=== PATIENT | female | born 1975 | race American Indian/Alaskan Native ===

== ENCOUNTER 2018-11-08 04:20 | Emergency (ER) | payer OTHER ==
[2018-11-08 08:38] VITALS: BP 145/84
--- NOTE | 2018-11-08 09:39 | Cat Scan Report ---
CT HEAD WITHOUT CONTRAST: HISTORY: Headache on left side for one month. TECHNIQUE: Sequential 2.5mm CT images. COMPARISON: 09/25/13. FINDINGS: Cerebral Parenchyma: Within normal limits. Cerebellum: Within normal limits. Brainstem: Within normal limits. Ventricles: Normal. Sella: Normal. Extra-axial spaces: Normal. Basal Cisterns: Normal. Intracranial Hemorrhage: None. Midline Shift: None. Calvarium: Normal. Sinuses: Normal. Mastoid Air Cells: Normal. Visualized Orbits: Normal. IMPRESSION: Cranial CT scan within normal limits.
--- NOTE | 2018-11-08 10:03 | Emergency Department Report ---
ED Headache HPI - General Chief Complaint: Headache Stated Complaint: LEFT SIDE OF BODY NUMB Time Seen by Provider: 11/08/18 09:36 - History of Present Illness Initial Comments: Patient is a 43-year-old Female who is presenting with a headache for the last month. Patient states that headache is mostly left-sided but sometimes is in the posterior occipital region. Patient states that her head aches and throbs several hours daily. Patient states she has some mild nausea but no vomiting and denies any neck stiffness fevers chills, cold or congestion. Patient states there is some associated numbness to the left arm and leg that is constant and is not improved when the headache goes away. Patient states she does also have some neck and back pain as well that is chronic. Allergies/Adverse Reactions: Allergies No Known Allergies Allergy (Verified 11/08/18 04:29) Home Medications: Ambulatory Orders Butalbit/Acetamin/Caff/Codeine [Fioricet-Cod 99-792-29-30 Cap] 1 each PO Q4-6H PRN #20 capsule 09/25/13 Ibuprofen [Motrin 600 MG tab] 600 mg PO Q8H PRN #20 tablet 11/08/18 traMADol [Ultram] 50 mg PO Q6HR PRN #12 tablet 11/08/18 ED Review of Systems ROS: Stated complaint: LEFT SIDE OF BODY NUMB Other details as noted in HPI Comment: All other systems reviewed and negative ED Past Medical Hx - Past Medical History Previous Medical History?: No - Surgical History Past Surgical History?: Yes Additional Surgical History: x2 - Social History Smoking Status: Never Smoker Substance Use Type: None - Medications Home Medications: Home Medications Medication Instructions Recorded Confirmed Last Taken Type Butalbit/Acetamin/Caff/Codeine 1 each PO Q4-6H PRN #20 capsule 09/25/13 Unknown Rx [Fioricet-Cod 98-690-14-30 Cap] Ibuprofen [Motrin 600 MG tab] 600 mg PO Q8H PRN #20 tablet 11/08/18 Unknown Rx traMADol [Ultram] 50 mg PO Q6HR PRN #12 tablet 11/08/18 Unknown Rx ED Physical Exam - General Limitations: No Limitations General appearance: alert, in no apparent distress - Head Head exam: Present: atraumatic, normocephalic - Eye Eye exam: Present: normal appearance, PERRL, EOMI - ENT ENT exam: Present: mucous membranes moist - Neck Neck exam: Present: normal inspection - Respiratory Respiratory exam: Present: normal lung sounds bilaterally. Absent: respiratory distress, wheezes, rales, rhonchi - Cardiovascular Cardiovascular Exam: Present: regular rate, normal rhythm. Absent: systolic murmur, diastolic murmur, rubs, gallop - GI/Abdominal GI/Abdominal exam: Present: soft, normal bowel sounds. Absent: distended, tenderness, guarding, rebound - Extremities Exam Extremities exam: Present: normal inspection - Back Exam Back exam: Present: normal inspection - Neurological Exam Neurological exam: Present: alert, oriented X3 - Psychiatric Psychiatric exam: Present: normal affect, normal mood - Skin Skin exam: Present: warm, dry, intact, normal color. Absent: rash ED Course Vital Signs 11/08/18 11/08/18 11/08/18 04:38 08:38 08:39 Temperature 98.1 F 98.5 F 98.5 F Pulse Rate 75 76 76 Respiratory 18 16 18 Rate Blood Pressure 145/71 Blood Pressure 145/84 145/84 [Right] O2 Sat by Pulse 99 100 100 Oximetry ED Medical Decision Making - Radiology Data [facility] [address] [place] [address] Cat Scan Report Signed Patient: MICHELLE MENARD MR#: [id number] : 1975 Acct:[id number] Age/Sex: 43 / F ADM Date: 11/08/18 Loc: ED Attending Dr: Ordering Physician: JIMMY SUMMERS MD Date of Service: 11/08/18 Procedure(s): CT head/brain wo con Accession Number(s): [id number] cc: JIMMY SUMMERS MD CT HEAD WITHOUT CONTRAST: HISTORY: Headache on left side for one month. TECHNIQUE: Sequential 2.5mm CT images. COMPARISON: 09/25/13. FINDINGS: Cerebral Parenchyma: Within normal limits. Cerebellum: Within normal limits. Brainstem: Within normal limits. Ventricles: Normal. Sella: Normal. Extra-axial spaces: Normal. Basal Cisterns: Normal. Intracranial Hemorrhage: None. Midline Shift: None. Calvarium: Normal. Sinuses: Normal. Mastoid Air Cells: Normal. Visualized Orbits: Normal. IMPRESSION: Cranial CT scan within normal limits. Transcribed By: TTR Dictated By: ZACH TREVINO JR, MD Electronically Authenticated By: ZACH TREVINO JR, MD Signed Date/Time: 11/08/18933 DD/ 2 TD/TT: 11/08/18933 - Medical Decision Making Patient is a 43-year-old female who is presenting with left-sided headache with numbness to her left side last month. Patient's CT head shows no subacute stroke or evidence of mass effect. Patient to be given pain meds and discharged home with follow-up with neurology. Critical care attestation.: If time is entered above; I have spent that time in minutes in the direct care of this critically ill patient, excluding procedure time. ED Disposition Clinical Impression: Paresthesia, Cervical radiculopathy Acute headache Qualifiers: Headache type: tension-type Intractability: intractable Qualified Code(s): G44.201 - Tension-type headache, unspecified, intractable Disposition: DC-01 TO HOME OR SELFCARE Is pt being admited?: No Does the pt Need Aspirin: No Condition: Stable Instructions: Acute Headache (ED) Referrals: MARCUS CEVALLOS MD [Referring] - 3-5 Days Time of Disposition: 10:04
== END 2018-11-08 10:12 | disposition home or self-care (01) ==
LOC: ED 04:20
DX: R51 Headache (principal); M54.12 Radiculopathy, cervical region; M54.9 Dorsalgia, unspecified; R20.2 Paresthesia of skin
CPT/HCPCS: 70450; 93005; 93010

== ENCOUNTER 2019-06-01 12:31 | Emergency (ER) | payer MEDICAID, OTHER ==
[2019-06-01 12:41] VITALS: BP 151/59
--- NOTE | 2019-06-01 13:07 | Emergency Department Report ---
Blank Doc - Documentation Documentation: 43-year-old female that presents with left sided flank pain with radiation to left chest and arm. This initial assessment/diagnostic orders/clinical plan/treatment(s) is/are subject to change based on patient's health status, clinical progression and re- assessment by fellow clinical providers in the ED. Further treatment and workup at subsequent clinical providers discretion. Patient/guardians urged not to elope from the ED as their condition may be serious if not clinically assessed and managed. Initial orders include: 1- Patient sent to Main ED for further evaluation and treatment 2- EKG 3- labs 4- UA
[2019-06-01 14:24] LABS: Basophils # (Auto) 0.1 K/mm3 (0.0-0.1); Basophils % (Auto) 1.6 % (0.0-1.8); Eosinophils # (Auto) 0.1 K/mm3 (0.0-0.4); Eosinophils % (Auto) 1.2 % (0.0-4.3); Hematocrit 20.7 % (30.3-42.9); Lymphocytes # (Auto) 2.1 K/mm3 (1.2-5.4); Lymphocytes % (Auto) 33.6 % (13.4-35.0); Mean Corpuscular HGB Conc 29 % (30-34); Monocytes # (Auto) 0.7 K/mm3 (0.0-0.8); Monocytes % (Auto) 11.6 % (0.0-7.3); Platelet Count 843 K/mm3 (140-440); Red Blood Count 3.19 M/mm3 (3.65-5.03)
[2019-06-01 14:34] LABS: INR 0.93 (0.87-1.13); Partial Thromboplastin Time 24.6 Sec. (24.2-36.6)
[2019-06-01 14:37] LABS: Mean Corpuscular Volume 65 fl (79-97)
[2019-06-01 14:38] LABS: Red Cell Distribution Width 24.4 % (13.2-15.2)
[2019-06-01 14:41] LABS: Alanine Aminotransferase 6 units/L (7-56); Albumin 4.4 g/dL (3.9-5); BUN/Creatinine Ratio 17; Blood Urea Nitrogen 10 mg/dL (7-17); Calcium 9.5 mg/dL (8.4-10.2); Hemolysis Index 8
--- NOTE | 2019-06-01 15:39 | XRay Report ---
CHEST PA AND LATERAL VIEWS INDICATION: Chest Pain. COMPARISON: None. FINDINGS: Support devices: None. Heart: Within normal limits. Lungs/Pleura: No acute pulmonary or pleural findings. IMPRESSION: 1. No acute findings. Signer Name: Zeus Armando MD Signed: 06/01/2019 3:34 PM Workstation Name: [id number]
== END 2019-06-01 22:52 ==
LOC: ED 12:31
DX: M79.604 Pain in right leg (principal); Z53.21 Procedure and treatment not carried out due to patient leaving prior to being seen by health care provider
CPT/HCPCS: 36415; 71046; 80053; 84484; 84703; 85025; 85610; 85730; 93005; 93010

== ENCOUNTER 2020-07-20 07:24 | Emergency (ER) | payer MEDICAID ==
[2020-07-20 07:36] VITALS: BP 157/85
[2020-07-20] MEDS ORDERED: ACETAMINOPHEN 500 MG TAB PO ONE (07:43)
--- NOTE | 2020-07-20 07:44 | Emergency Department Report ---
ED Back Pain/Injury HPI - General Chief Complaint: Abdominal Pain Stated Complaint: FLANK PAIN Time Seen by Provider: 07/20/20 07:33 Source: patient Limitations: No Limitations - History of Present Illness Initial Comments: 44-year-old female with a past medical history of thyroid disease and tachycardia secondary to her thyroid disease presents to the ER today complaint of left lumbar/left flank pain. Patient states that she has been having this pain since October 19, 2019. Patient states that the pain has been constant. She states that it worsens when she walks moves and when she lays down. She described as a sharp/aching pain is nonradiating. She states that she has had some mild intermittent nausea when the pain flares up. She denies any associated abdominal pain, UTI symptoms or any vaginal issues. She denies any associated bowel or bladder incontinence, urinary retention or constipation. She denies any saddle anesthesia, lower extremity numbness, tingling or weakness. She Denies any chest pain or shortness of breath. She denies injury to her back. She denies known back issues. Patient states she has mentioned this pain to her PCP but nothing has been done. She states this is her first ED visit since she started with this pain. She states she has been taking Motrin without relief of her symptoms. MD Complaint: back pain, other (Left flank pain) -: month(s) (since October 18 ) - Related Data Previous Rx's Medication Instructions Recorded Last Taken Type Ibuprofen [Motrin 600 MG tab] 600 mg PO Q8H PRN #20 tablet 11/08/18 Unknown Rx Acetaminophen/Codeine [Tylenol 1 tab PO Q4HR PRN #10 tablet 07/20/20 Unknown Rx /Codeine # 3 tab] methOCARBAMOL [Robaxin TAB] 750 mg PO Q8H PRN #30 tablet 07/20/20 Unknown Rx methylPREDNISolone [Medrol 4MG 4 mg PO DAILY #1 tab.ds.pk 07/20/20 Unknown Rx DOSEPAK (21 tabs)] Allergies Allergy/AdvReac Type Severity Reaction Status Date / Time No Known Allergies Allergy Verified 07/20/20 07:31 ED Review of Systems ROS: Stated complaint: FLANK PAIN Other details as noted in HPI Comment: All other systems reviewed and negative Constitutional: denies: chills, fever Eyes: denies: eye pain, eye discharge, vision change ENT: denies: ear pain, throat pain Respiratory: denies: cough, shortness of breath, wheezing Cardiovascular: denies: chest pain, palpitations, dyspnea on exertion, edema, syncope, paroxysmal nocturnal dyspnea Endocrine: no symptoms reported Gastrointestinal: denies: abdominal pain, nausea, vomiting, diarrhea, constipation, hematemesis, melena, hematochezia Genitourinary: denies: urgency, dysuria, discharge Musculoskeletal: back pain Skin: denies: rash, lesions Neurological: denies: headache, weakness, numbness, paresthesias, confusion, abnormal gait, vertigo Psychiatric: denies: anxiety, depression Hematological/Lymphatic: denies: easy bleeding, easy bruising ED Past Medical Hx - Past Medical History Additional medical history: THYROID/ HEART PALPATIONS - Surgical History Additional Surgical History: x2, partial hysterectomy 10/17/2019 - Social History Smoking Status: Never Smoker Substance Use Type: None - Medications Home Medications: Home Medications Medication Instructions Recorded Confirmed Last Taken Type Ibuprofen [Motrin 600 MG tab] 600 mg PO Q8H PRN #20 tablet 11/08/18 Unknown Rx Acetaminophen/Codeine [Tylenol 1 tab PO Q4HR PRN #10 tablet 07/20/20 Unknown Rx /Codeine # 3 tab] methOCARBAMOL [Robaxin TAB] 750 mg PO Q8H PRN #30 tablet 07/20/20 Unknown Rx methylPREDNISolone [Medrol 4MG 4 mg PO DAILY #1 tab.ds.pk 07/20/20 Unknown Rx DOSEPAK (21 tabs)] ED Physical Exam - General Limitations: No Limitations General appearance: alert, in no apparent distress - Head Head exam: Present: atraumatic, normocephalic, normal inspection - Respiratory Respiratory exam: Present: normal lung sounds bilaterally. Absent: respiratory distress - Cardiovascular Cardiovascular Exam: Present: regular rate, normal rhythm, normal heart sounds - GI/Abdominal GI/Abdominal exam: Present: soft. Absent: distended, tenderness, guarding, royal ound - Back Exam Back exam: Present: normal inspection, full ROM, CVA tenderness (L), paraspinal tenderness (Left mid to upper lumbar ), vertebral tenderness (upper lumbar ). Absent: CVA tenderness (R) - Neurological Exam Neurological exam: Present: alert, oriented X3, CN II-XII intact, normal gait. Absent: motor sensory deficit - Psychiatric Psychiatric exam: Present: normal affect, normal mood - Skin Skin exam: Present: intact ED Course Vital Signs 07/20/20 07:32 Temperature 98 F Pulse Rate 77 Respiratory 18 Rate Blood Pressure 157/85 O2 Sat by Pulse 98 Oximetry ED Medical Decision Making - Lab Data Result diagrams: 07/20/20 07:50 07/20/20 07:50 - Radiology Data Radiology results: report reviewed - Medical Decision Making 44-year-old female with a past medical history of thyroid disease and tachycardia secondary to her thyroid disease presents to the ER today complaint of left lumbar/left flank pain. Patient states that she has been having this pain since October 19, 2019. Patient states that the pain has been constant. She states that it worsens when she walks moves and when she lays down. She described as a sharp/aching pain is nonradiating. She states that she has had some mild intermittent nausea when the pain flares up. She denies any associated abdominal pain, UTI symptoms or any vaginal issues. She denies any associated bowel or bladder incontinence, urinary retention or constipation. She denies any saddle anesthesia, lower extremity numbness, tingling or weakness. She Denies any chest pain or shortness of breath. She denies injury to her back. She denies known back issues. Patient states she has mentioned this pain to her PCP but nothing has been done. She states this is her first ED visit since she started with this pain. She states she has been taking Motrin without relief of her symptoms. 0918: CT abdomen pelvis reviewed, no acute abnormalities,but incidental findings were noted such as a 6 mm pulmonary nodule, cholelithiasis, degenerative changes to the spine; labs reviewed and unremarkable. Patient currently resting comfortably. She is not in any acute pain or respiratory distress. The patient is neurologically intact and is ambulatory in the ED. The patient has no fever, no bowel or bladder incontinence, no saddle anesthesia and is otherwise alert and well-appearing. With history, physical examination and diagnostic testing does not suggest the presence of acute spinal epidural abscess, acute epidural bleed, cauda equina syndrome, abdominal/thoracic aortic aneurysm, aortic dissection or other acute process requiring further testing, treatment or consultation in the emergency department. The vital signs have been stable. Discussed lab and CT results and incidental findings with patient. Commend follow-up with her primary care doctor and personnel security specialist for further evaluation. Expressed understanding of instructions and agree with plan. The patient condition is stable and appropriate for discharge. Critical care attestation.: If time is entered above; I have spent that time in minutes in the direct care of this critically ill patient, excluding procedure time. ED Disposition Clinical Impression: Lumbar pain, Degenerative joint disease (DJD) of lumbar spine, Gallstone, Pulmo nary nodule Disposition: TO HOME OR SELFCARE Is pt being admited?: No Does the pt Need Aspirin: No Condition: Stable Instructions: Osteoarthritis, Cholelithiasis, [id number], Chronic Back Pain, Abdominal Pain (ED) Additional Instructions: The medications given to you as prescribed. I recommend that you follow-up with your primary care doctor or the orthopedic doctor listed on your discharge instructions for further evaluation of your back pain including an outpatient MRI. Also follow-up with your primary care doctor for continued monitoring of the 6 mm pulmonary nodule that was found on your CT. Return to the ER if your symptoms changes or worsens in any way. Prescriptions: methylPREDNISolone [Medrol 4MG DOSEPAK (21 tabs)] 4 mg PO DAILY #1 tab.ds.pk methOCARBAMOL [Robaxin TAB] 750 mg PO Q8H PRN #30 tablet PRN Reason: Muscle Spasm Acetaminophen/Codeine [Tylenol /Codeine # 3 tab] 1 tab PO Q4HR PRN #10 tablet PRN Reason: Pain Referrals: JOSE ABBOTT MD [Primary Care Provider] - 3-5 Days RAMON MCCANN MD [Staff Physician] - 3-5 Days Forms: Work/School Release Form(ED) Time of Disposition: 09:10
[2020-07-20 08:26] LABS: Bilirubin,Urine NEG (Negative); Blood,Urine SM (Negative); Color,Urine Yellow (Yellow); Mucus,Urine FEW /HPF; Protein,Urine <15 mg/dL mg/dL (Negative)
--- NOTE | 2020-07-20 08:26 | Cat Scan Report ---
CT ABDOMEN AND PELVIS WITHOUT CONTRAST HISTORY: MAIN. Left-sided abdominal pain for the past 6 months COMPARISON: None. TECHNIQUE: CT images of the abdomen and pelvis were obtained without administration of intravenous co ntrast. All CT scans at this location are performed using CT dose reduction for ALARA by means of au tomated exposure control. FINDINGS: Lungs/bones: 6 mm nodule in the right lower lobe on image 15 of series #2 and tiny calcified granulo ma also in the right lower lobe. Lungs are otherwise clear. There are degenerative changes within the spine and pelvis with no acute osseous abnormality identified. Abdomen/pelvis: The liver is slightly enlarged with no abnormality identified. The spleen, pancreas, adrenals, kidneys, and proximal GI tract appear unremarkable. There is minimal cholelithiasis with a single punctate gallstone lying dependently. Urinary bladder is mostly collapsed and therefore incompletely evaluated for any wall thickening or m ass. Uterus is surgically absent. The terminal ileum and appendix appear normal. The left ovary is no t well seen. The right ovary is present. IMPRESSION: 1. No acute abnormality identified. 2. Incidental findings as outlined above including a 6 mm right lower lobe pulmonary nodule. Please s ee below recommendations. INCIDENTAL PULMONARY NODULE RECOMMENDATION RECOMMENDATION: Solid Nodule size 6-8 mm -- Single - Low Risk Patient: CT at 6-12 months, then consider CT at 18-24 months - High Risk Patient: CT at 6-12 months, then CT at 18-24 months Note These recommendations do not apply to lung cancer screening, patients with immunosuppression, o r patients with known primary cancer. Note Newly detected indeterminate nodule in persons 35 years of age or older. Persons under the age of 35 should not receive follow-up unless there is a known primary cancer. Note A Perifissural Nodule is a fissure-attached/subpleural, homogeneous, solid nodule that had smoo th margins and an oval, lentiform, or triangular shape. They represent about 20% of nodules detected in lung cancer screening, are invariably benign, and do not require follow-up. Nodules 10 mm or large r (or those with suspicious features) will continue to be managed based on the size criteria. Low Risk Patient -- minimal or absent history of smoking and of other known risk factors. High Risk Patient -- history of smoking or of other known risk factors. Nodule dimensions are average of long and short axes, rounded to the nearest millimeter. Based on 2017 Fleischner Society Guidelines found in Radiology 2017 284:228-243. https://doi.org/10.1148/radiol.[email or web address] https://www.ncbi.nlm.nih.gov/pmc/articles/MPZ6418729/ Signer Name: Eliseo Pierce MD Signed: 07/20/2020 8:22 AM Workstation Name: [id number]
[2020-07-20 08:31] LABS: Basophils % (Auto) 0.6 % (0.0-1.8); Eosinophils # (Auto) 0.1 K/mm3 (0.0-0.4); Eosinophils % (Auto) 1.2 % (0.0-4.3); Hematocrit 39.3 % (30.3-42.9); Hemoglobin 13.5 gm/dl (10.1-14.3); Lymphocytes % (Auto) 27.1 % (13.4-35.0); Mean Corpuscular HGB Conc 34 % (30-34); Mean Corpuscular Volume 96 fl (79-97); Monocytes # (Auto) 0.6 K/mm3 (0.0-0.8); Monocytes % (Auto) 8.5 % (0.0-7.3); Platelet Count 279 K/mm3 (140-440); Red Cell Distribution Width 13.9 % (13.2-15.2)
[2020-07-20 08:58] LABS: Alanine Aminotransferase 9 units/L (7-56); Albumin 3.8 g/dL (3.9-5); BUN/Creatinine Ratio 13; Blood Urea Nitrogen 10 mg/dL (7-17); Calcium 8.9 mg/dL (8.4-10.2); Hemolysis Index 3
== END 2020-07-20 09:20 | disposition home or self-care (01) ==
LOC: ED 07:24
DX: M47.816 Spondylosis without myelopathy or radiculopathy, lumbar region (principal); K80.80 Other cholelithiasis without obstruction; R91.1 Solitary pulmonary nodule; Z98.890 Other specified postprocedural states; Z79.1 Long term (current) use of non-steroidal anti-inflammatories (NSAID); Z79.899 Other long term (current) drug therapy
CPT/HCPCS: 36415; 74176; 80053; 81001; 83690; 85025

== ENCOUNTER 2021-10-04 06:12 | Emergency (ER) | payer MEDICAID ==
[2021-10-04 06:22] VITALS: BP 148/95
[2021-10-04 07:00] LABS: Bilirubin,Urine NEG (Negative); Blood,Urine SM (Negative); Color,Urine Yellow (Yellow); Mucus,Urine 1+ /HPF
[2021-10-04 07:04] LABS: Basophils % (Auto) 0.6 % (0.0-1.8); Eosinophils # (Auto) 0.2 K/mm3 (0.0-0.4); Hematocrit 40.3 % (30.3-42.9); Hemoglobin 13.6 gm/dl (10.1-14.3); Lymphocytes % (Auto) 25.9 % (13.4-35.0); Mean Corpuscular HGB Conc 34 % (30-34); Mean Corpuscular Volume 92 fl (79-97); Monocytes # (Auto) 0.8 K/mm3 (0.0-0.8); Monocytes % (Auto) 10.2 % (0.0-7.3); Platelet Count 374 K/mm3 (140-440); Red Blood Count 4.37 M/mm3 (3.65-5.03); Red Cell Distribution Width 14.4 % (13.2-15.2)
[2021-10-04 07:28] LABS: Alanine Aminotransferase 17 units/L (7-56); Albumin 4.1 g/dL (3.9-5); BUN/Creatinine Ratio 20; Blood Urea Nitrogen 20 mg/dL (7-17); Calcium 9.7 mg/dL (8.4-10.2); Hemolysis Index 10
--- NOTE | 2021-10-04 09:27 | Emergency Department Report ---
ED Abdominal Pain HPI - General Chief Complaint: Abdominal Pain Stated Complaint: left side pain Source: patient Mode of arrival: Ambulatory Limitations: No Limitations - History of Present Illness Initial Comments: 45-year-old male presents to the ED complaining abdominal pain intermittent x6 months. She state 1 day ago that the pain started radiating to her left flank area and became a 10 out of 10. Patient denies any dysuria ,vaginal discharge, nausea or vomiting. Patient states that she had a hysterectomy 1 year ago. Patient denies taking any prior medication to arrival. . Patient denies any chest pain or shortness of breath at present time. No acute distress noted no ill appearance noted MD Complaint: abdominal pain Onset/Timin -: days(s) Location: LLQ Radiation: L flank Severity scale (0 -10): 10 Quality: aching Consistency: intermittent Improves With: nothing Worsens With: nothing - Related Data Previous Rx's Medication Instructions Recorded Last Taken Type Ibuprofen [Motrin 600 MG tab] 600 mg PO Q8H PRN #20 tablet 11/08/18 Unknown Rx Acetaminophen/Codeine [Tylenol 1 tab PO Q4HR PRN #10 tablet 07/20/20 Unknown Rx /Codeine # 3 tab] methOCARBAMOL [Robaxin TAB] 750 mg PO Q8H PRN #30 tablet 07/20/20 Unknown Rx methylPREDNISolone [Medrol 4MG 4 mg PO DAILY #1 tab.ds.pk 07/20/20 Unknown Rx DOSEPAK (21 tabs)] Naproxen [Naprosyn] 500 mg PO BID 15 Days #20 tablet 10/04/21 Unknown Rx Allergies Allergy/AdvReac Type Severity Reaction Status Date / Time No Known Allergies Allergy Verified 07/20/20 07:31 ED Review of Systems ROS: Stated complaint: left side pain Other details as noted in HPI Constitutional: denies: chills, fever Eyes: denies: eye pain, eye discharge, vision change ENT: denies: ear pain, throat pain Respiratory: denies: cough, shortness of breath, wheezing Cardiovascular: denies: chest pain, palpitations Endocrine: no symptoms reported Gastrointestinal: abdominal pain. denies: nausea, diarrhea Genitourinary: denies: urgency, dysuria, discharge Musculoskeletal: denies: back pain, joint swelling, arthralgia Skin: denies: rash, lesions Neurological: denies: headache, weakness, paresthesias Psychiatric: denies: anxiety, depression Hematological/Lymphatic: denies: easy bleeding, easy bruising ED Past Medical Hx - Past Medical History Additional medical history: THYROID/ HEART PALPATIONS - Surgical History Additional Surgical History: x2, partial hysterectomy 10/17/2019 - Social History Smoking Status: Never Smoker Substance Use Type: None - Medications Home Medications: Home Medications Medication Instructions Recorded Confirmed Last Taken Type Ibuprofen [Motrin 600 MG tab] 600 mg PO Q8H PRN #20 tablet 11/08/18 Unknown Rx Acetaminophen/Codeine [Tylenol 1 tab PO Q4HR PRN #10 tablet 07/20/20 Unknown Rx /Codeine # 3 tab] methOCARBAMOL [Robaxin TAB] 750 mg PO Q8H PRN #30 tablet 07/20/20 Unknown Rx methylPREDNISolone [Medrol 4MG 4 mg PO DAILY #1 tab.ds.pk 07/20/20 Unknown Rx DOSEPAK (21 tabs)] Naproxen [Naprosyn] 500 mg PO BID 15 Days #20 tablet 10/04/21 Unknown Rx ED Physical Exam - General Limitations: No Limitations General appearance: alert, in no apparent distress - Head Head exam: Present: atraumatic, normocephalic - Eye Eye exam: Present: normal appearance - ENT ENT exam: Present: mucous membranes moist - Neck Neck exam: Present: normal inspection - Respiratory Respiratory exam: Present: normal lung sounds bilaterally. Absent: respiratory distress - Cardiovascular Cardiovascular Exam: Present: regular rate, normal rhythm. Absent: systolic murmur, diastolic murmur, rubs, gallop - GI/Abdominal GI/Abdominal exam: Present: soft, normal bowel sounds - Extremities Exam Extremities exam: Present: normal inspection - Back Exam Back exam: Present: normal inspection - Neurological Exam Neurological exam: Present: alert, oriented X3 - Psychiatric Psychiatric exam: Present: normal affect, normal mood - Skin Skin exam: Present: warm, dry, intact, normal color. Absent: rash ED Course Vital Signs 10/04/21 10/04/21 10/04/21 06:16 09:39 10:59 Temperature 98.6 F 98.6 F Pulse Rate 109 H 89 Respiratory 18 18 16 Rate Blood Pressure 148/95 Blood Pressure 148/95 [Right] O2 Sat by Pulse 98 99 Oximetry ED Medical Decision Making - Lab Data Result diagrams: 10/04/21 06:44 10/04/21 06:44 - Radiology Data [facility] [address] [place] [address] Cat Scan Report Signed Patient: MICHELLE MENARD MR#: [id number] : 1975 Acct:[id number] Age/Sex: 45 / F ADM Date: 10/04/21 Loc: ED Attending Dr: Ordering Physician: ANTOINE HUANG Date of Service: 10/04/21 Procedure(s): CT abdomen pelvis wo/w con Accession Number(s): [id number] cc: ANTOINE HUANG CT abdomen pelvis wo/w con INDICATION / CLINICAL INFORMATION: left lower abd radiate to left flank. TECHNIQUE: Axial CT imaging of abdomen and pelvis was obtained with and without IV contrast. Coronal and sagittal reformatted imaging obtained and reviewed. All CT scans at this location are performed using CT dose reduction for ALARA by means of automated exposure control. COMPARISON: Prior CT abdomen/pelvis 07/20/2020 FINDINGS: CT abdomen with IV contrast demonstrates normal appearance of the liver, spleen, pancreas, kidneys, and adrenal glands. There are a few small calcified gallstones within the gallbladder. The gallbladder does not appear to be abnormally distended or inflamed, however. No biliary dilatation. Abdominal aorta is unremarkable. CT pelvis with contrast demonstrates a a few simple appearing cysts within the right ovary. A couple of the cysts are measuring 3.5 cm and 3.2 cm in diameter. Uterus is absent. No additional pelvic mass is noted. No free fluid or focal inflammatory change. A normal appendix is present in the right lower quadrant. GI tract is grossly unremarkable. CT abdomen without contrast does not provide any additional information. No urinary tract or intrarenal calculi are noted. Visualized lung bases are unremarkable. Previously described small pulmonary nodule in the right lateral lung base persists unchanged and is considered benign.. No significant acute osseous abnormality. IMPRESSION: 1. No acute finding within the abdomen or pelvis to account for the complaint of left lower abdominal pain, left flank pain. 2. Incidental finding of a few 3 cm cysts within the right ovary. No associated free fluid. 3. Cholelithiasis. Signer Name: Nevin Castellanos MD Signed: 10/04/2021 10:22 AM Workstation Name: [id number] Transcribed By: Dictated By: Nevin Castellanos MD Electronically Authenticated By: Nevin Castellanos MD Signed Date/Time: 10/04/21 1022 - Medical Decision Making 45-year-old male presents to the ED complaining abdominal pain intermittent x6 months. She state 1 day ago that the pain started radiating to her left flank area and became a 10 out of 10. Patient denies any dysuria ,vaginal discharge, nausea or vomiting. Patient states that she had a hysterectomy 1 year ago. Patient denies taking any prior medication to arrival. . Patient denies any chest pain or shortness of breath at present time. No acute distress noted no ill appearance noted. Physical examination patient has tenderness to the left l ower quadrant radiating to the left flank area. CT scan shows; 1. No acute finding within the abdomen or pelvis to account for the complaint of left lower abdominal pain, left flank pain. 2. Incidental finding of a few 3 cm cysts within the right ovary. No associated free fluid. 3. Cholelithiasis. Abnormal Lab Results 10/04/21 10/04/21 10/04/21 06:44 06:44 06:44 WBC 7.9 RBC 4.37 Hgb 13.6 Hct 40.3 MCV 92 MCH 31 MCHC 34 RDW 14.4 Plt Count 374 Lymph % (Auto) 25.9 [place] % (Auto) 10.2 H Eos % (Auto) 2.0 Baso % (Auto) 0.6 Lymph # (Auto) 2.0 [place] # (Auto) 0.8 Eos # (Auto) 0.2 Baso # (Auto) 0.0 Seg Neutrophils % 61.3 Seg Neutrophils # 4.8 Sodium 141 Potassium 3.8 Chloride 103.5 Carbon Dioxide 25 Anion Gap 16 BUN 20 H Creatinine 1.0 Estimated GFR > 60 BUN/Creatinine Ratio 20 Glucose 106 H Calcium 9.7 Total Bilirubin 0.50 AST 16 ALT 17 Alkaline Phosphatase 72 Total Protein 7.7 Albumin 4.1 Albumin/Globulin Ratio 1.1 HCG, Qual Negative Urine Color Urine Turbidity Urine pH Ur Specific [place] Urine Protein Urine Glucose (UA) Urine Ketones Urine Blood Urine Nitrite Urine Bilirubin Urine Urobilinogen Ur Leukocyte Esterase Urine WBC (Auto) Urine RBC (Auto) U Epithel Cells (Auto) Urine Mucus 10/04/21 Unknown WBC RBC Hgb Hct MCV MCH MCHC RDW Plt Count Lymph % (Auto) [place] % (Auto) Eos % (Auto) Baso % (Auto) Lymph # (Auto) [place] # (Auto) Eos # (Auto) Baso # (Auto) Seg Neutrophils % Seg Neutrophils # Sodium Potassium Chloride Carbon Dioxide Anion Gap BUN Creatinine Estimated GFR BUN/Creatinine Ratio Glucose Calcium Total Bilirubin AST ALT Alkaline Phosphatase Total Protein Albumin Albumin/Globulin Ratio HCG, Qual Urine Color Yellow Urine Turbidity Slightly-cloudy Urine pH 5.0 Ur Specific [place] 1.031 H Urine Protein 30 mg/dl Urine Glucose (UA) Neg Urine Ketones Neg Urine Blood Sm Urine Nitrite Neg Urine Bilirubin Neg Urine Urobilinogen 4.0 Ur Leukocyte Esterase Neg Urine WBC (Auto) 2.0 Urine RBC (Auto) 4.0 U Epithel Cells (Auto) 25.0 H Urine Mucus 1+ Rechecked the patient is resting quietly quietly and comfortable and feeling better. I discussed the results of diagnostic study, my clinical impression and the plan for further treatment with the patient. Patient agrees with plan and discharge at this present time. All question addressed. I have given the patient instruction regarding a diagnosis ,expectation ,follow- up and return precaution. I explained to the patient that emergent condition may arise and to return to the ED for new worsen and any new persisting condition. I have explained the importance of following up with the primary care physician or referral physician listed below has instructed. The patient verbalized understanding of discharge instruction. Critical care attestation.: If time is entered above; I have spent that time in minutes in the direct care of this critically ill patient, excluding procedure time. ED Disposition Clinical Impression: Ovarian cyst, right Cholelithiasis Qualifiers: Cholelithiasis location: gallbladder Cholecystitis presence: without cholecystitis Biliary obstruction: without biliary obstruction Qualified Code(s): K80.20 - Calculus of gallbladder without cholecystitis without obstruction Disposition: 01 HOME / SELF CARE / HOMELESS Is pt being admited?: No Does the pt Need Aspirin: No Condition: Stable Instructions: Cholelithiasis, [id number], Ovarian Cyst, [id number], Gallbladder Eating Plan, Abdominal Pain (ED) Additional Instructions: Take medication as prescribed Return to the ED for any worsening symptom Prescriptions: Naproxen [Naprosyn] 500 mg PO BID 15 Days #20 tablet Referrals: [facility] [Provider Group] - 3-5 Days [facility] [Provider Group] - 3-5 Days Forms: Work/School Release Form(ED) Time of Disposition: 10:55
[2021-10-04] MEDS ORDERED: KETOROLAC 30 MG/1 ML INJ IV ONE (09:28)
--- NOTE | 2021-10-04 10:26 | Cat Scan Report ---
CT abdomen pelvis wo/w con INDICATION / CLINICAL INFORMATION: left lower abd radiate to left flank. TECHNIQUE: Axial CT imaging of abdomen and pelvis was obtained with and without IV contrast. Coronal and sagitta l reformatted imaging obtained and reviewed. All CT scans at this location are performed using CT do se reduction for ALARA by means of automated exposure control. COMPARISON: Prior CT abdomen/pelvis 07/20/2020 FINDINGS: CT abdomen with IV contrast demonstrates normal appearance of the liver, spleen, pancreas, kidneys, a nd adrenal glands. There are a few small calcified gallstones within the gallbladder. The gallbladder does not appear to be abnormally distended or inflamed, however. No biliary dilatation. Abdominal ao rta is unremarkable. CT pelvis with contrast demonstrates a a few simple appearing cysts within the right ovary. A couple of the cysts are measuring 3.5 cm and 3.2 cm in diameter. Uterus is absent. No additional pelvic mass is noted. No free fluid or focal inflammatory change. A normal appendix is present in the right lowe r quadrant. GI tract is grossly unremarkable. CT abdomen without contrast does not provide any additional information. No urinary tract or intraren al calculi are noted. Visualized lung bases are unremarkable. Previously described small pulmonary nodule in the right late ral lung base persists unchanged and is considered benign.. No significant acute osseous abnormality. IMPRESSION: 1. No acute finding within the abdomen or pelvis to account for the complaint of left lower abdominal pain, left flank pain. 2. Incidental finding of a few 3 cm cysts within the right ovary. No associated free fluid. 3. Cholelithiasis. Signer Name: Nevin Castellanos MD Signed: 10/04/2021 10:22 AM Workstation Name: [id number]
== END 2021-10-04 11:09 | disposition home or self-care (01) ==
LOC: ED 06:12
DX: N83.201 Unspecified ovarian cyst, right side (principal); K80.20 Calculus of gallbladder without cholecystitis without obstruction; Z79.899 Other long term (current) drug therapy
CPT/HCPCS: 36415; 74178; 80053; 81001; 84703; 85025; 96374; 99284; J1885; Q9967